=== PATIENT | female | born 1995 | race Caucasian/White ===

== ENCOUNTER 2025-03-21 23:16 | Emergency (ER) | payer MEDICAID ==
[~2025-03-21] VITALS: Ht 167.6 cm; Wt 71.0 kg
[2025-03-21 23:24] VITALS: O2SAT 97
[2025-03-22] MEDS ORDERED: TOPUD PO (06:25)
[2025-03-22] MEDS: ACETAMINOPHEN 325MG TABLET PO ONE (06:32)
[2025-03-22] MEDS: LIDOCAINE HCL 1% 20ML VIAL INFIL ONE (06:32)
[2025-03-22 07:04] VITALS: BP 102/63; PULSE 75; RESP 16; TEMP 36.7; O2SAT 97
== END 2025-03-22 07:04 | disposition home or self-care (01) ==
LOC: ER 23:16
DX: S61.511A Laceration without foreign body of right wrist, initial encounter (principal); W25.XXXA Contact with sharp glass, initial encounter; Y93.89 Activity, other specified; Y92.89 Other specified places as the place of occurrence of the external cause; Y99.8 Other external cause status
CPT/HCPCS: 12001; 99283; J2003; Z7610 ×2